=== PATIENT | female | born 2000 | race Hispanic/Latino ===

== ENCOUNTER 2021-01-05 11:02 | Emergency (ER) | payer MEDICAID, OTHER ==
[~2021-01-05] VITALS: Ht 165.1 cm; Wt 90.7 kg
[2021-01-05 11:03] VITALS: BP 114/68
[2021-01-05] MEDS ORDERED: NACL 0.9% 1000ML 1,000 ML IV ONE (13:00)
[2021-01-05] MEDS ORDERED: ONDANSETRON 4MG INJ IVP ONE (13:00)
[2021-01-05] MEDS ORDERED: MORPHINE 4 MG SYG IVP ONE (13:00)
== END 2021-01-05 13:06 | disposition home or self-care (01) ==
LOC: EDH 11:02
DX: T19.2XXA Foreign body in vulva and vagina, initial encounter (principal); Z79.899 Other long term (current) drug therapy; X58.XXXA Exposure to other specified factors, initial encounter; Y93.89 Activity, other specified; Y92.89 Other specified places as the place of occurrence of the external cause; Y99.8 Other external cause status
CPT/HCPCS: 99281